=== PATIENT | male | born 1970 | race Caucasian/White ===

== ENCOUNTER 2022-10-26 21:47 | Emergency (ER) | payer BC, SELFPAY ==
[2022-10-26 21:51] VITALS: BP 0/0; PULSE 0; RESP 16; O2SAT 0; BMI 23.6
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
--- NOTE | 2022-10-26 22:24 | PC.NURSE ---
[facility] Par[facility] notified at [id number]. Mr. Be has released the patient's body.
--- NOTE | 2022-10-26 22:30 | PC.NURSE ---
Parth Be called back & requested a Blood Alcohol level before he can release the body.
--- NOTE | 2022-10-26 22:34 | PC.NURSE ---
MTS notified of patients .
[2022-10-26 23:24] LABS: Alcohol Level 57 mg/dL (0-10)
--- NOTE | 2022-10-26 23:39 | PC.NURSE ---
Blood alcohol level [facility] Mr. Be has released the body.
--- NOTE | 2022-10-27 00:18 | PC.NURSE ---
Family took patient's credit card, zafar $101, [facility].
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
[2022-10-27 02:09] VITALS: BP 0/0; PULSE 0; RESP 0; O2SAT 0
--- NOTE | 2022-10-31 15:49 | DCPLANNER ---
sr. media manager was triggered to call patient due to no primary care physician - patient .
== END 2022-10-27 02:12 | disposition expired ==
PROVIDERS: Emergency Provider Emergency Medicine
DX: S29.8XXA Other specified injuries of thorax, initial encounter (principal); I46.9 Cardiac arrest, cause unspecified; V29.99XA Rider (driver) (passenger) of other motorcycle injured in unspecified traffic accident, initial encounter
CPT/HCPCS: 80307; 99285